=== PATIENT | male | born 1955 | race Asian ===

== ENCOUNTER 2017-02-13 11:15 | Emergency (ER) | payer OTHER ==
[~2017-02-13] VITALS: Ht 157.5 cm; Wt 59.9 kg
[2017-02-13 12:57] VITALS: BP 153/99
== END 2017-02-13 13:09 | disposition home or self-care (01) ==
LOC: ED 11:15
DX: G43.909 Migraine, unspecified, not intractable, without status migrainosus (principal); I10 Essential (primary) hypertension
CPT/HCPCS: J1885; J3010; Q0162